=== PATIENT | female | born 1935 | race Caucasian/White ===

== ENCOUNTER 2024-03-23 13:59 | Emergency (ER) | payer MEDICARE, OTHER ==
[2024-03-23 14:29] LABS: APPEARANCE,URINE CLEAR (CLEAR); BILIRUBIN,URINE NEGATIVE (NEGATIVE); COLOR,URINE YELLOW (YELLOW); GLUCOSE,URINE NEGATIVE (NEGATIVE); KETONES,URINE NEGATIVE (NEGATIVE); LEUKOCYTE ESTERASE,URINE TRACE (NEGATIVE); NITRITE,URINE NEGATIVE (NEGATIVE); OCCULT BLOOD,URINE NEGATIVE (NEGATIVE); PH,URINE 5.5 (5.0-8.0); PROTEIN,URINE NEGATIVE (NEGATIVE); UROBILINOGEN,URINE 0.2 EU/dL (0.2)
[2024-03-23 14:38] LABS: RBC,URINE 0-5 /HPF (NOT SEEN); SQUAMOUS EPITHELIAL CELLS,UR FEW /HPF (NOT SEEN); WBC,URINE 0-5 /HPF (NOT SEEN)
[2024-03-23 14:39] LABS: BACTERIA,URINE MODERATE /HPF (NOT SEEN)
[2024-03-23] MEDS: Fluconazole 100 MG Tab PO ONE (15:19)
[2024-03-23] MEDS: Take Home: Cephalexin 250 MG Cap, 4 Cap Pack PO ONE (15:19)
[2024-03-23] MEDS: Nystatin Crm 30 GM Tube TOP STA (15:19)
[2024-03-23] MEDS: Cephalexin 250 MG Cap PO ONE (15:19)
== END 2024-03-23 15:26 | disposition home or self-care (01) ==
LOC: VM.ED 13:59
DX: N30.00 Acute cystitis without hematuria (principal); B37.89 Other sites of candidiasis; Z79.82 Long term (current) use of aspirin; Z79.84 Long term (current) use of oral hypoglycemic drugs; Z79.899 Other long term (current) drug therapy; Z88.8 Allergy status to other drugs, medicaments and biological substances
CPT/HCPCS: 51702; 81001; 87086; 99283; A9270; 87088; 87186; 99284